=== PATIENT | female | born 2000 ===

== ENCOUNTER 2019-01-04 14:45 | Inpatient (IN) | payer OTHER ==
[~2019-01-04] VITALS: Ht 167.6 cm; Wt 98.0 kg
[2019-01-26] MEDS ORDERED: PRENATAL + DHA1 EAC1 PO (03:28)
== END 2019-01-28 18:02 | disposition home or self-care (01) | DRG 807 ==
LOC: O/R 14:45 → OB/GYN 01-26 02:24 → LDR 01-26 02:24 → OB/GYN 01-26 14:45
PROVIDERS: ADMIT Specialist
PROC: 10E0XZZ Delivery of Products of Conception, External Approach (ICD-10-PCS; principal; 2019-01-26)
PROC: 0UQGXZZ Repair Vagina, External Approach (ICD-10-PCS; 2019-01-26)
PROC: 4A1HXCZ Monitoring of Products of Conception, Cardiac Rate, External Approach (ICD-10-PCS; 2019-01-26)
PROC: 4A033R1 Measurement of Arterial Saturation, Peripheral, Percutaneous Approach (ICD-10-PCS; 2019-01-26)
DX: O71.4 Obstetric high vaginal laceration alone (principal); Z37.0 Single live birth; Z3A.40 40 weeks gestation of pregnancy; Z22.330 Carrier of Group B streptococcus